=== PATIENT | female | born 2000 | race Two or more races ===

== ENCOUNTER 2021-12-19 10:25 | Emergency (ER) | payer OTHER ==
[2021-12-19 10:31] VITALS: BMI 24.7
[2021-12-19 11:15] VITALS: BP 107/68; PULSE 90; TEMP 98
== END 2021-12-19 11:42 | disposition home or self-care (01) ==
LOC: JERFT 10:25
DX: R04.0 Epistaxis (principal)
CPT/HCPCS: 99283-25

== ENCOUNTER 2021-12-22 10:23 | Emergency (ER) | payer OTHER ==
[2021-12-22 10:33] VITALS: BP 94/64; PULSE 87; TEMP 98; BMI 24.7
== END 2021-12-22 11:28 | disposition home or self-care (01) ==
LOC: JER 10:23 → JERFT 10:23
DX: N61.1 Abscess of the breast and nipple (principal)
CPT/HCPCS: 99283-25